=== PATIENT | female | born 1975 | race Caucasian/White ===

== ENCOUNTER 2025-05-02 09:07 | Inpatient (IN) | payer MEDICAID ==
[~2025-05-02] VITALS: Ht 165.1 cm; Wt 60.8 kg
[2025-05-02] MEDS ORDERED: ZOLPIDEM TARTRATE 10 MG TABLET PO PRN (10:45)
[2025-05-02] MEDS ORDERED: OMEPRAZOLE 20 MG CAPSULE PO PRN (12:00)
[2025-05-02] MEDS ORDERED: MAGNESIUM HYDROXIDE SUSPENSION 30 ML UDCUP PO PRN (12:00)
[2025-05-02] MEDS ORDERED: IBUPROFEN 600 MG TABLET PO PRN (12:00)
[2025-05-02] MEDS ORDERED: ALBUTEROL SULFATE HFA 90 MCG/PUFF 8 GM INHALER IH PRN (12:00)
[2025-05-02] MEDS ORDERED: ONDANSETRON 4 MG TABLET PO PRN (12:00)
[2025-05-02] MEDS ORDERED: BENZOCAINE/MENTHOL [CEPACOL] LOZENGE PO PRN (12:00)
[2025-05-02] MEDS ORDERED: ACETAMINOPHEN 325 MG TABLET PO PRN (12:00)
[2025-05-02] MEDS ORDERED: LOPERAMIDE HCL 2 MG CAPSULE PO PRN (12:00)
[2025-05-02] MEDS ORDERED: MAG HYDROX/ALUMINUM HYD/SIMETH ES 30 ML SUSPENSION UDCUP PO PRN (12:00)
[2025-05-02] MEDS ORDERED: DOCUSATE SODIUM 100 MG CAPSULE PO PRN (12:00)
[2025-05-03 01:35] VITALS: BP 112/73; PULSE 107; RESP 18; TEMP 99.3; O2SAT 96
[2025-05-03 08:07] VITALS: BP 98/74; PULSE 99; RESP 18; TEMP 98; O2SAT 98
[2025-05-03 09:26] LABS: PLATELET COUNT (AUTO) 455 K/uL (150-450); RED BLOOD CELL COUNT(AUTO) 5.47 MIL/uL (4.00-5.20); RED CELL DISTRIBUTION WIDTH 12.9 % (11.5-14.5); WHITE BLOOD COUNT (AUTO) 7.6 K/uL (4.5-11.0)
[2025-05-03 09:51] LABS: ALCOHOL, BLOOD (SERUM) < 3 mg/dL (0-10)
[2025-05-03 10:05] LABS: ASPARTATE AMINOTRANSFERASE 21 U/L (15-37); CALCIUM, TOTAL 9.3 mg/dL (8.8-10.5); CHOL/HDL RATIO 2.8 (3.9-5.7); CREATININE 0.56 mg/dL (0.60-1.30); GLOMERULAR FILTR. RATE CALC > 60 mL/min (>60); GLUCOSE,RANDOM 88 mg/dL (70-110); LDL CHOL (CALC.) 111 mg/dL (0-130); SODIUM SERUM 143 mmol/L (136-145); TOTAL PROTEIN, SERUM 7.3 g/dL (6.4-8.2); UREA NITROGEN, BLOOD 14 mg/dL (7-18)
[2025-05-03 20:11] VITALS: BP 99/69; PULSE 90; RESP 18; TEMP 97.9; O2SAT 99
[2025-05-03] MEDS: PETROLATUM,WHITE 28 GM JELLY TP PRN (21:26)
[2025-05-03] MEDS: BACITRACIN 28 GM OINTMENT TP PRN (21:26)
[2025-05-04 08:50] VITALS: BP 125/86; PULSE 101; RESP 17; TEMP 98.4; O2SAT 96
[2025-05-04] MEDS: CEPHALEXIN MONOHYDRATE 500 MG CAPSULE PO SCH (13:03)
[2025-05-04] MEDS: MUPIROCIN CALCIUM 2% 15 GM CREAM TP SCH (16:50)
[2025-05-04 20:02] VITALS: BP 110/66; PULSE 17; RESP 17; TEMP 98.4; O2SAT 97
[2025-05-05 08:06] VITALS: BP 129/88; PULSE 81; RESP 18; TEMP 97.8; O2SAT 100
[2025-05-05 08:48] LABS: APPEARANCE,URINE CLEAR (CLEAR); GLUCOSE, URINE (UA) NEGATIVE (NEGATIVE); LEUKOCYTE ESTERASE ,URINE NEGATIVE (NEGATIVE); NITRATE,URINE NEGATIVE (NEGATIVE); OCCULT BLOOD,URINE TRACE (NEGATIVE); SPECIFIC GRAVITIY, URINE 1.017 (1.003-1.030)
[2025-05-05 09:00] LABS: ALCOHOL, URINE DRUG SCREEN NEGATIVE (NEGATIVE); AMPHET/METH SCREEN,URINE NEGATIVE (NEGATIVE); BARBITURATE SCREEN, URINE NEGATIVE (NEGATIVE); CANNABINOID SCREEN,URINE NEGATIVE (NEGATIVE); COCAINE SCREEN,URINE NEGATIVE (NEGATIVE); METHADONE SCREEN, URINE NEGATIVE (NEGATIVE)
[2025-05-05 09:13] LABS: SQUAMOUS EPITHELIAL CELL,UR Few /LPF (None Seen)
[2025-05-05 09:44] LABS: PH,URINE DRUG SCREEN 6.0 (5.0-8.0)
[2025-05-05] MEDS ORDERED: CEPH-558 PO (12:30)
[2025-05-05] MEDS ORDERED: MUPI15CR12 TP (12:31)
== END 2025-05-05 14:00 | disposition home or self-care (01) | DRG 761 ==
LOC: UNDOADMIN 10:49 → B3A 10:49 → B2S 20:57
PROVIDERS: ADMIT Psychiatry & Neurology Psychiatry; ATTEND Psychiatry & Neurology Psychiatry
DX: F25.9 Schizoaffective disorder, unspecified (principal); F41.9 Anxiety disorder, unspecified; G47.00 Insomnia, unspecified; K59.00 Constipation, unspecified
CPT/HCPCS: 80053; 80061; 80307; 81001; 83036; 84436; 84443; 85025; 86592; G0480